=== PATIENT | female | born 1960 | race African-American/Black ===

== ENCOUNTER → 2016-11-11 | Outpatient (CLI) | payer MEDICAID ==
[~2016-11-11] MED LIST: ASCO-294 PO; LISI-127 PO; METO25TA41 PO; OXYC40TA25 PO; WARF5TAB67 PO
--- NOTE | 2016-11-11 11:28 | DI ---
Indication: ITS.REASON: [id number] LEG PAIN PROCEDURE: US VENOUS DUPLEX, LOWER EXT LT: Encounter: Initial Comparison: None Technique: Color Doppler duplex and grayscale sonographic imaging of the left lower extremity was performed. Findings: There is no evidence for acute deep venous thrombosis in the left thigh. Specifically, serial graded compression was performed from the inguinal ligament to the popliteal bifurcation, on the left thigh, demonstrating appropriate compressibility of the deep venous system. In addition, color and pulsed Doppler demonstrate appropriate spontaneous flow, variation with respiration, and augmentation with calf compression. At the ankle, normal flow is identified in the posterior tibial veins; these vessels are also normal in caliber. Subcutaneous edema in the soft tissues. Impression: No evidence of acute DVT in the left lower limb. .
== END ==
LOC: IMA 10:14
PROVIDERS: ATTEND Orthopaedic Surgery Foot and Ankle Surgery
DX: M79.669 Pain in unspecified lower leg (principal); R60.0 Localized edema